=== PATIENT | male | born 1985 | race African-American/Black ===

== ENCOUNTER 2024-03-30 01:49 | Emergency (ER) | payer MEDICAID ==
[~2024-03-30] VITALS: Ht 182.9 cm; Wt 100.0 kg
[2024-03-30 02:03] VITALS: O2SAT 98
[2024-03-30] MEDS: SODIUM CHLORIDE 0.9% 1,000 ML IV ONE (03:00)
[2024-03-30 03:01] LABS: CHLORIDE 99 mEq/L (98-107); POTASSIUM 4.1 mEq/L (3.5-5.1); SODIUM 135 mEq/L (136-145)
[2024-03-30 03:02] LABS: CALCIUM 9.8 mg/dL (8.7-10.4); CARBON DIOXIDE 24 mEq/L (21-32)
[2024-03-30] MEDS: IBUPROFEN 600MG TABLET PO ONE (03:03)
[2024-03-30] MEDS: LIDOCAINE 5% PATCH TOP SCH (03:04)
[2024-03-30 03:07] LABS: CREATININE 1.4 mg/dL (0.6-1.3); GLUCOSE 90 mg/dL (70-105); UREA NITROGEN BLOOD 24 mg/dL (9-23)
[2024-03-30 03:35] LABS: BASOPHILS % 0.5 % (0.0-2.0); EOSINOPHILS % 0.3 % (0.0-5.0); HEMATOCRIT. 42.9 % (42.0-52.0); HEMOGLOBIN. 14.7 g/dL (14.0-18.0); LYMPHOCYTES % 20.2 % (20.0-50.0); MEAN CORPUSCULAR HEMOGLOBIN 31.7 pg (28.0-32.0); MEAN CORPUSCULAR HGB CONC 34.4 g/dL (31.0-37.0); MEAN CORPUSCULAR VOLUME 92.3 fL (80.0-94.0); MEAN PLATELET VOLUME 8.4 fl (7.4-10.4); MONOCYTES % 9.4 % (2.0-8.0); NEUTROPHILS % 69.6 % (40.0-76.0); PLATELET 306 x1000/uL (130-400); RED BLOOD CELL COUNT 4.65 mill/uL (4.7-6.1); RED CELL DISTRIBUTION WIDTH 14.8 % (11.6-14.6)
[2024-03-30 03:54] LABS: ETHANOL BLOOD < 10 mg/dL (<10)
[2024-03-30] MEDS ORDERED: IBUP-2029 MT (04:43)
[2024-03-30 05:15] VITALS: BP 134/80; PULSE 94; RESP 20; TEMP 37.05852; O2SAT 99
== END 2024-03-30 05:20 | disposition home or self-care (01) ==
LOC: ER 01:49
DX: M54.50 Low back pain, unspecified (principal)
CPT/HCPCS: 80048; 80320; 85025; 36415; 99283; J7030; G0480